=== PATIENT | male | born 1995 | race American Indian/Alaskan Native ===

== ENCOUNTER 2020-09-24 16:37 | Emergency (ER) | payer SELFPAY ==
[2020-09-24 16:49] VITALS: BP 122/84
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
[2020-09-24] MEDS ORDERED: IBUPROFEN 600 MG TAB PO ONE (18:41)
== END 2020-09-24 19:30 | disposition home or self-care (01) ==
LOC: ED 16:37
DX: S02.2XXA Fracture of nasal bones, initial encounter for closed fracture (principal); S00.83XA Contusion of other part of head, initial encounter; S20.219A Contusion of unspecified front wall of thorax, initial encounter; S30.0XXA Contusion of lower back and pelvis, initial encounter; Z79.1 Long term (current) use of non-steroidal anti-inflammatories (NSAID); Y04.8XXA Assault by other bodily force, initial encounter; Y93.89 Activity, other specified; Y92.89 Other specified places as the place of occurrence of the external cause; Y99.8 Other external cause status
CPT/HCPCS: 70450; 70486; 72125